=== PATIENT | female | born 1965 | race African-American/Black ===

== ENCOUNTER 2016-11-03 15:57 | Inpatient (IN) | payer OTHER ==
[~2016-11-03] VITALS: Ht 154.9 cm; Wt 55.9 kg
[~2016-11-03 15:57] MED LIST: FLEXERIL5 MG PO; NAPROSYN500 MG PO; ZOFRAN4 MG PO
[2016-11-03 16:52] LABS: MCH 31.6 PG (29.0-34.0); MCHC 34.5 G/DL (30.0-36.0); MCV 91.8 FL (83-99); PLATELET COUNT 426 K/uL (156-360); RBC DIS.WIDTH-SD 42.5 % (39-53); RED BLOOD COUNT 3.16 M/uL (3.80-5.20); WHITE BLOOD COUNT 13.2 K/uL (4.1-10.2)
[2016-11-03 17:03] LABS: CHLORIDE 103 mEq/L (99-109); POTASSIUM 3.7 mEq/L (3.7-5.4); SODIUM 138 mEq/L (136-147)
[2016-11-03 17:04] LABS: GLUCOSE 102 mg/dL (70-99)
[2016-11-03 17:05] LABS: EOSINOPHIL (%) 0.1 % (0-5); IMMATURE GRANULOCYTE (%) 0.8 % (0.0-0.7); IMMATURE GRANULOCYTE COUNT 1.1 K/uL; LYMPHOCYTE COUNT 1.3 K/uL (1.0-2.8); MONOCYTE (%) 16.3 % (3-12); MONOCYTE COUNT 2.2 K/uL (0-0.8); NEUTROPHIL (%) 72.7 % (45-76); NEUTROPHIL COUNT 9.6 K/uL (1.8-6.4)
[2016-11-03 17:06] LABS: ANION GAP 11 MEQ/L (2-14)
[2016-11-03 17:08] LABS: GFR ESTIMATE (CALCULATED) > 59 mL/min/
[2016-11-03 17:09] LABS: UREA NITROGEN (BUN) 5 mg/dL (9-23)
[2016-11-03 17:17] LABS: TROP-I INTERPRETATION NEGATIVE; TROPONIN-I < 0.01 ng/mL (0.0-0.30)
[2016-11-03] MEDS ORDERED: IBUPROFEN800 MG PO (17:25)
[2016-11-03 20:46] VITALS: BP 84/60
[2016-11-03 21:30] VITALS: BP 107/80
[2016-11-03 22:50] LABS: INFLUENZA A VIRAL ANTIGEN NEGATIVE; INFLUENZA B VIRAL ANTIGEN NEGATIVE
[2016-11-04 00:31] VITALS: BP 101/60
[2016-11-04 06:46] LABS: HEMATOCRIT 29.7 % (36.0-46.0); MCHC 32.3 G/DL (30.0-36.0); MCV 92.8 FL (83-99); MEAN PLAT.VOLUME 9.3 uM^3 (9.5-12.4); PLATELET COUNT 420 K/uL (156-360); RBC DIS.WIDTH-CV 13.5 % (11.8-14.6); RBC DIS.WIDTH-SD 45.9 % (39-53); WHITE BLOOD COUNT 12.4 K/uL (4.1-10.2)
[2016-11-04 06:53] LABS: EOSINOPHIL (%) 0.6 % (0-5); EOSINOPHIL COUNT 0.1 K/uL (0-0.3); IMMATURE GRANULOCYTE (%) 0.3 % (0.0-0.7); MONOCYTE (%) 14.7 % (3-12); MONOCYTE COUNT 1.8 K/uL (0-0.8); NEUTROPHIL (%) 76.1 % (45-76); NEUTROPHIL COUNT 9.5 K/uL (1.8-6.4)
[2016-11-04 07:16] VITALS: BP 111/75
[2016-11-04 15:40] VITALS: BP 103/59
[2016-11-04 23:30] VITALS: BP 108/67
[2016-11-05 07:30] VITALS: BP 121/79
[2016-11-05 07:44] LABS: HEMATOCRIT 27.5 % (36.0-46.0); MCH 31.6 PG (29.0-34.0); MCHC 34.2 G/DL (30.0-36.0); MCV 92.6 FL (83-99); MEAN PLAT.VOLUME 9.2 uM^3 (9.5-12.4); PLATELET COUNT 408 K/uL (156-360); RBC DIS.WIDTH-CV 13.6 % (11.8-14.6); RED BLOOD COUNT 2.97 M/uL (3.80-5.20); WHITE BLOOD COUNT 11.6 K/uL (4.1-10.2)
[2016-11-05 07:54] LABS: INTERNAL CONTROL VALID? YES
[2016-11-05 08:10] LABS: ANION GAP 8 MEQ/L (2-14); CHLORIDE 106 MEQ/L (99-109); GFR ESTIMATE (CALCULATED) > 59 mL/min/; GLUCOSE 89 mg/dL (70-99); POTASSIUM 3.6 MEQ/L (3.7-5.4); SAMPLE HEMOLYSIS CHECK 0; SAMPLE ICTERIC CHECK 0; SAMPLE LIPEMIA CHECK 0; SODIUM 140 MEQ/L (136-147); UREA NITROGEN (BUN) 3 mg/dL (9-23)
[2016-11-05 15:16] VITALS: BP 124/82
[2016-11-06 00:45] VITALS: BP 117/71
[2016-11-06 07:20] LABS: HEMATOCRIT 25.9 % (36.0-46.0); MCH 31.7 PG (29.0-34.0); MCHC 34.4 G/DL (30.0-36.0); MCV 92.2 FL (83-99); MEAN PLAT.VOLUME 9.3 uM^3 (9.5-12.4); PLATELET COUNT 410 K/uL (156-360); RBC DIS.WIDTH-CV 13.3 % (11.8-14.6); RBC DIS.WIDTH-SD 44.9 % (39-53); RED BLOOD COUNT 2.81 M/uL (3.80-5.20); WHITE BLOOD COUNT 9.3 K/uL (4.1-10.2)
[2016-11-06 07:28] VITALS: BP 109/71
[2016-11-06 07:46] LABS: ANION GAP 7 MEQ/L (2-14); CHLORIDE 107 MEQ/L (99-109); GFR ESTIMATE (CALCULATED) > 59 mL/min/; GLUCOSE 130 mg/dL (70-99); SAMPLE HEMOLYSIS CHECK 0; SAMPLE ICTERIC CHECK 0; SAMPLE LIPEMIA CHECK 0; SODIUM 139 MEQ/L (136-147); UREA NITROGEN (BUN) 5 mg/dL (9-23)
[2016-11-06 07:50] LABS: POTASSIUM 4.4 MEQ/L (3.7-5.4)
[2016-11-06] MEDS ORDERED: LEVAQUIN750 MG PO (08:12)
[2016-11-06] MEDS ORDERED: VENTOLIN HFA18 GM IH (09:21)
[2016-11-06] MEDS ORDERED: TRAMADOL HCL50 MG PO (09:23)
== END 2016-11-06 12:58 | disposition home or self-care (01) | DRG 871 ==
LOC: EME 15:57 → EDOF 19:34 → 5SOUTH 19:34
PROVIDERS: Family Medicine; Internal Medicine; Physician Assistant
DX: A41.9 Sepsis, unspecified organism (principal); J18.9 Pneumonia, unspecified organism; D47.3 Essential (hemorrhagic) thrombocythemia; E83.51 Hypocalcemia; E87.6 Hypokalemia
CPT/HCPCS: 71010; 71020; 80048; 83605; 84145 90; 84484; 85025; 85027; 87040; 87070; 87205; 87449; 87502; 93005; 94640; 94640 76; 99202; 99281; 99285; J0456; J0696; J1650; J1885; J1956; J2405; J2920; J7030; J7050